=== PATIENT | female | born 1985 | race Caucasian/White ===

== ENCOUNTER 2022-12-12 10:21 | Outpatient (REF) | payer MEDICAID, SELFPAY | END 2022-12-12 10:22 | disposition home or self-care (01) | LOC: NCHCN 10:21 | PROVIDERS: Visit Provider Nurse Practitioner Family | DX: L29.8 Other pruritus (principal) | CPT/HCPCS: 87480; 87510; 87660 ==

== ENCOUNTER 2023-01-16 09:24 | Outpatient (REF) | payer MEDICAID, SELFPAY ==
--- NOTE | 2023-01-16 09:00 | PAPFT_PTH ---
PATIENT: Kaylie Shepard LOC: [facility]#:[id number] AGE/SX: 37/F ROOM: RE01/16/[address]: Nadege Damon : 1985 BED: DIS: 01/16/2023 SPEC #: [id number] RECD: 01/16/23 17:55 STATUS: RAMSES REKay #: [id number] ÁLVARO: 01/16/23 09:[address]: Nadege Damon DEPT: [facility] Cytology RECD BY: Larisa Justice Tissues: 1 - CX/ENDOCX FOR PAP SMEARS Procedures: PAP THIN PREP/[facility] Screening HPV DNA PROBE Comments: [id number] (CHLAMYDIA/GC)
[2023-01-17 16:02] LABS: Chlamydia Result Negative (Negative); GC Result Negative (Negative)
== END 2023-01-16 09:25 | disposition home or self-care (01) ==
LOC: NCHCN 09:24
PROVIDERS: PCP Nurse Practitioner Family; Visit Provider Nurse Practitioner Family
DX: Z11.3 Encounter for screening for infections with a predominantly sexual mode of transmission (principal); Z12.4 Encounter for screening for malignant neoplasm of cervix; Z11.51 Encounter for screening for human papillomavirus (HPV)
CPT/HCPCS: 87491; 87591; 88142; 87624